=== PATIENT | male | born 1975 | race African-American/Black ===

== ENCOUNTER 2016-12-26 16:11 | Emergency (ER) | payer OTHER ==
[2016-12-26 16:19] VITALS: PULSE 66; TEMP 97.4; BMI 19.9
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
[2016-12-26] MEDS ORDERED: KETOROLAC TROMETHAMINE 30 MG/1 ML VIAL IVPUSH ONE (17:22)
[2016-12-26] MEDS ORDERED: diazePAM CARPU-JECT 10 MG/2 ML DISP.SYRIN IVPUSH ONE (17:22)
[2016-12-26] MEDS ORDERED: diazePAM CARPU-JECT 10 MG/2 ML DISP.SYRIN ONE (18:08)
[2016-12-26] MEDS ORDERED: KETOROLAC TROMETHAMINE 30 MG/1 ML VIAL ONE (18:09)
[2016-12-26] MEDS ORDERED: ACETAMINOPHEN 1000 MG/100 ML VIAL (NON FORMULARY) IVPB ONE (20:01)
[2016-12-26] MEDS ORDERED: METHOCARBAMOL 500 MG TABLET PO ONE (20:02)
[2016-12-26] MEDS ORDERED: METHOCARBAMOL 500 MG TABLET ONE (20:09)
[2016-12-26] MEDS ORDERED: ACETAMINOPHEN INJECTION 100 ML IVPB ONE (20:09)
[2016-12-26 20:42] VITALS: BP 144/75
--- NOTE | 2016-12-27 11:26 | EKG ---
Test Reason : Blood Pressure : / mmHG Vent. Rate : 054 BPM Atrial Rate : 054 BPM P-R Int : 120 ms QRS Dur : 088 ms QT Int : 390 ms P-R-T Axes : 039 087 072 degrees QTc Int : 369 ms SINUS BRADYCARDIA OTHERWISE NORMAL ECG NO PREVIOUS ECGS AVAILABLE Confirmed by SKYE MANTILLA MD ([id number]) on 12/27/2016 11:25:42 AM Referred By: Confirmed By:SKYE MANTILLA MD
== END 2016-12-26 20:43 | disposition home or self-care (01) ==
LOC: JER 16:11
PROC: 3E033NZ Introduction of Analgesics, Hypnotics, Sedatives into Peripheral Vein, Percutaneous Approach (ICD-10-PCS; principal; 2016-12-26)
PROC: 3E0333Z Introduction of Anti-inflammatory into Peripheral Vein, Percutaneous Approach (ICD-10-PCS; 2016-12-26)
DX: S23.3XXA Sprain of ligaments of thoracic spine, initial encounter (principal); M62.830 Muscle spasm of back; X58.XXXA Exposure to other specified factors, initial encounter; Y93.89 Activity, other specified; Y92.89 Other specified places as the place of occurrence of the external cause; J45.909 Unspecified asthma, uncomplicated; G40.909 Epilepsy, unspecified, not intractable, without status epilepticus
CPT/HCPCS: 71010-TC; 93005; 93010; 96374; 96375; 99283-25